=== PATIENT | male | born 1980 | race Two or more races ===

== ENCOUNTER 2018-09-06 16:10 | Emergency (ER) | payer SELFPAY ==
[2018-09-06] MEDS ORDERED: NORMAL SALINE 1000 ML 1,000 ML IV ONE (18:26)
[2018-09-06] MEDS ORDERED: ACETAMINOPHEN SOLN 325 MG/10.15 ML UDCUP PO ONE (18:26)
[2018-09-06] MEDS ORDERED: ACETAMINOPHEN 325 MG TABLET PO ONE (18:36)
--- NOTE | 2018-09-06 18:36 | ER Document Report ---
ED Medical Screen (RME) - General Chief Complaint: Abscess Stated Complaint: ABSCESS Time Seen by Provider: 09/06/18 18:16 Primary Care Provider: YARELY BRADY MD [Primary Care Provider] - Follow up as needed Mode of Arrival: Ambulatory TRAVEL OUTSIDE OF THE U.S. IN LAST 30 DAYS: No - HPI Notes: 09/06/18 18:27 Patient is a 37 yr old male who is with , speaks luxembourgish, but patient speaks belgian that presents to the emergency department for chief complaint of right facial swelling with fever today. Was by [facility] today and advised to come to the ER for swelling. was being evaluated for eye discharge within the last two weeks, was seen by an eye doctor was placed on eye antibiotics, denies any any eye pain today. has not tried any otc meds. worse with time, nothing makes better. ROS: Other than noted above, the 12 point review of systems was reviewed with the patient and were negative, all pertinent findings are included in the HPI. PHYSICAL EXAMINATION: Vital signs reviewed. GENERAL: Well-appearing, well-nourished and in no mild distress. HEAD: Atraumatic, normocephalic. right partoid gland with swelling with tend erness, no erythema. EYES: Pupils equal round extraocular movements intact, conjunctiva are normal. ENT: Nares patent NECK: Normal range of motion CV: Heart regular rate and rhythm LUNGS: No respiratory distress Musculoskeletal: Normal range of motion NEUROLOGICAL: Normal speech PSYCH: Normal mood, normal affect. MDM: Patient seen and examined for rapid initial assessment. Vital signs reviewed. A comprehensive ED assessment and evaluation of the patient, analysis of test results and completion of the medical decision making process will be conducted by additional ED providers. *Note is created using voice recognition software and may contain spelling, syntax or grammatical errors. 09/06/18 18:27 Past Medical History - Social History Chew tobacco use (# tins/day): No Frequency of alcohol use: Rare Drug Abuse: None Renal/ Medical History: Denies: Hx Peritoneal Dialysis Physical Exam - Vital signs Vitals: Temp Pulse Resp BP Pulse Ox 101.9 F H 91 22 H 160/90 H 96 09/06/18 16:23 09/06/18 16:23 09/06/18 16:23 09/06/18 16:23 09/06/18 16:23 Course - Vital Signs Vital signs: Temp Pulse Resp BP Pulse Ox 100.2 F 102 H 20 150/79 H 99 09/06/18 18:20 09/06/18 18:20 09/06/18 18:20 09/06/18 18:20 09/06/18 18:20 Doctor's Discharge - Discharge Referrals: YARELY BRADY MD [Primary Care Provider] - Follow up as needed
[2018-09-06 19:28] LABS: ABSOLUTE EOSINOPHILS # (AUTO) 0.4 10^3/uL (0.0-0.6); ABSOLUTE LYMPHOCYTES (AUTO) 1.9 10^3/uL (0.5-4.7); ABSOLUTE MONOCYTES (AUTO) 0.8 10^3/uL (0.1-1.4); ABSOLUTE NEUT (AUTO) 5.4 10^3/uL (1.7-8.2); BASOPHILS % (AUTO) 0.5 % (0-2); EOSINOPHILS % (AUTO) 4.7 % (0-6); HEMATOCRIT 41.9 % (37.9-51.0); HEMOGLOBIN 14.2 g/dL (13.5-17.0); LYMPHOCYTES % (AUTO) 22.5 % (13-45); MEAN CORPUSCULAR HEMOGLOBIN 28.7 pg (27.0-33.4); MEAN CORPUSCULAR HGB CONC 33.9 g/dL (32.0-36.0); MEAN CORPUSCULAR VOLUME 85 fl (80-97); PLATELET COUNT 284 10^3/uL (150-450); RED BLOOD COUNT 4.95 10^6/uL (4.35-5.55); SEGMENTED NEUTROPHILS % (AUTO) 63.3 % (42-78); TOTAL CELLS COUNTED % (AUTO) 100 %; WHITE BLOOD COUNT 8.6 10^3/uL (4.0-10.5)
[2018-09-06 19:47] LABS: ALANINE AMINOTRANSFERASE 25 U/L (21-72); ALBUMIN 4.5 g/dL (3.5-5.0); ALKALINE PHOSPHATASE 113 U/L (38-126); ANION GAP 12 (5-19); ASPARTATE AMINO TRANSFERASE 18 U/L (17-59); BILIRUBIN,DIRECT 0.2 mg/dL (0.0-0.4); BILIRUBIN,TOTAL 0.6 mg/dL (0.2-1.3); BLOOD UREA NITROGEN 9 mg/dL (7-20); C-REACTIVE PROTEIN 35.9 mg/L (<10.0); CALCIUM 9.5 mg/dL (8.4-10.2); CARBON DIOXIDE 26 mmol/L (22-30); CHLORIDE 101 mmol/L (98-107); GLUCOSE 100 mg/dL (75-110); SODIUM 138.6 mmol/L (137-145); TOTAL PROTEIN 7.7 g/dL (6.3-8.2)
[2018-09-06 20:05] LABS: CREATINE KINASE 54 U/L (55-170)
[2018-09-06 21:08] LABS: CREATINE KINASE MB < 0.22 ng/mL (<4.55); TROPONIN I < 0.012 ng/mL
--- NOTE | 2018-09-06 21:11 | RADIOLOGY REPORT (SQ) ---
EXAM DESCRIPTION: RadLex: CT NECK CHEST WITH IV CONTRAST CLINICAL HISTORY: 37 years Male; right parotid swelling, fever, pain TECHNIQUE: CT soft tissue neck with contrast. All CT scans at this facility use dose modulation, iterative reconstruction, and/or weight based dosing when appropriate to reduce radiation dose to as low as reasonably achievable. COMPARISON: None. FINDINGS: There are multiple enlarged right level 2 lymph nodes, with mild edema anterior to the right sternocleidomastoid, extending inferiorly from the inferior margin of the right parotid gland and posterior to the right submandibular gland. There is no discrete fluid collection. Jugulodigastric node is 2.3 cm. Other nodes measure up to 1.5 cm. A right parotid lymph node is 1.5 cm. There are several enlarged parotid lymph nodes. No norberto necrosis. There is minimal right parotid edema. No ductal distention. Right submandibular gland is normal. Left parotid and submandibular glands are normal. No enlarged left cervical lymph nodes. There are scattered small right level 3 and 4 nodes. Larynx is normal. Epiglottis is normal. No airway narrowing. No retropharyngeal edema. Paranasal sinuses and mastoid air cells are clear. IMPRESSION: 1. Right parotid and level 2 internal jugular adenopathy. Minimal right parotid edema, extending inferiorly along the anterior margin of the right sternocleidomastoid muscle. 2. This suggests parotiditis, although the size of lymph nodes raises concern for malignancy. Close follow-up is recommended. 3. No abscess.
[2018-09-06] MEDS ORDERED: SULFAMETHOXAZOLE/TRIMETHOPRIM 800-160 MG TABLET PO ONE (22:59)
[2018-09-06] MEDS ORDERED: CEPHALEXIN 500 MG CAPSULE PO ONE (23:00)
--- NOTE | 2018-09-06 23:02 | ER Document Report ---
ED General - General Chief Complaint: Abscess Stated Complaint: ABSCESS Time Seen by Provider: 09/06/18 18:16 Primary Care Provider: YARELY BRADY MD [NO LOCAL MD] - Follow up in 3-5 days DENIS GAMINO MD [ACTIVE STAFF] - Follow up in 3-5 days Mode of Arrival: Ambulatory Notes: Patient is a 37-year-old male that presents to the emergency department for chief complaint of facial swelling and pain. Patient apparently had a corneal abrasion about 2 weeks ago was treated for that, with antibiotics, was cleared from the tablet coater from that standpoint, but started having facial swelling and pain, on the right side over the past several days, and is gotten significantly worse. He said fever at home as well, currently describes the pain as a constant ache, worse with touching the right side of the face. The patient rates the pain as a 4 out of 10. He has had some drainage from his right eye as well. No pain with extraocular eye movements. Denies having any chest pain, shortness of breath, difficulty breathing, nausea, vomiting or abdominal pain. Past Medical History: Denies chronic medical conditions Past Surgical History: Denies surgical history Social History: Denies tobacco, alcohol or drug use. Family History: Reviewed and noncontributory for presenting illness Allergies: Reviewed, see documented allergy list. REVIEW OF SYSTEMS: Other than noted above, the 12 point review of systems was reviewed with the patient and were negative, all pertinent findings are included in the HPI. PHYSICAL EXAMINATION: Vital signs reviewed, nursing noted reviewed. GENERAL: Well-appearing, well-nourished and in no acute distress. HEAD: Atraumatic, normocephalic. EYES: EOMI, PERRLA, there is moderate conjunctival injection on the right, with yellowish discharge, the patient does not have pain with extraocular eye movement, the left eye is unremarkable. ENT: nares patent, oropharynx clear without exudates. Moist mucous membranes. The right side of the face is mildly edematous and mildly erythematous, tender to palpate particularly over the parotid gland. NECK: Normal range of motion, right-sided cervical lymphadenopathy. LUNGS: Breath sounds clear to auscultation bilaterally and equal. No wheezes rales or rhonchi. HEART: Regular rate and rhythm without murmurs ABDOMEN: Soft, nontender, normoactive bowel sounds. No rebound, guarding, or rigidity. No masses appreciated. EXTREMITIES: Nontender, good range of motion, no pitting or edema. NEUROLOGICAL: No focal neurological deficits. Moves all extremities spontaneously Motor and sensory grossly intact on exam. PSYCH: Normal mood, normal affect. SKIN: Warm, Dry, normal turgor, no rashes or lesions noted on exposed skin TRAVEL OUTSIDE OF THE [place].S. IN LAST 30 DAYS: No Past Medical History - Social History Smoking Status: Never Smoker Chew tobacco use (# tins/day): No Frequency of alcohol use: Rare Drug Abuse: None Family History: Reviewed & Not Pertinent Patient has suicidal ideation: No Patient has homicidal ideation: No Renal/ Medical History: Denies: Hx Peritoneal Dialysis Physical Exam - Vital signs Vitals: Temp Pulse Resp BP Pulse Ox 101.9 F H 91 22 H 160/90 H 96 09/06/18 16:23 09/06/18 16:23 09/06/18 16:23 09/06/18 16:23 09/06/18 16:23 Course - Re-evaluation Re-evalutation: Patient seen and examined vital signs reviewed. Laboratory data and/or imaging were ordered as appropriate for the patient's presenting symptoms and complaint, with consideration of any critical or life threatening conditions that may be associated with their obtained history and exam as noted above. Patient was treated with Bactrim, Keflex, IV fluids and Tylenol Results were reviewed when available and demonstrated no leukocytosis, blood work was essentially unremarkable, however CT imaging of the soft tissues of the face, revealed right-sided cervical lymph nodes, and inflammation of the parotid gland, and soft tissue swelling without discrete abscess, clinically the patient's presenting with facial cellulitis, does have tenderness over the right side of the face with erythema and some edema. The patient was re-evaluated and was stable Evaluation was most consistent with facial cellulitis, parotiditis, recommend follow-up with ENT, due to cervical lymph nodes associated with this, given referral. Given prescription for Bactrim and Keflex for 10 days. Results were discussed with the patient at this point, after careful consideration I feel that that patient can be discharged from the emergency department, the patient was educated treatments and reasons to return to the emergency department based on their presumed diagnosis as noted above, they were advised to followup with a primary care physician in 2-3 days. Patient was agreeable to plan of care. *Note is created using voice recognition software and may contain spelling, syntax or grammatical errors. Laboratory 09/06/18 09/06/18 09/06/18 19:08 19:08 19:08 WBC 8.6 RBC 4.95 Hgb 14.2 Hct 41.9 MCV 85 MCH 28.7 MCHC 33.9 RDW 15.0 H Plt Count 284 Seg Neutrophils % 63.3 Lymphocytes % 22.5 Monocytes % 9.0 Eosinophils % 4.7 Basophils % 0.5 Absolute Neutrophils 5.4 Absolute Lymphocytes 1.9 Absolute Monocytes 0.8 Absolute Eosinophils 0.4 Absolute Basophils 0.0 Sodium 138.6 Potassium 4.0 Chloride 101 Carbon Dioxide 26 Anion Gap 12 BUN 9 Creatinine 0.74 Est GFR ( Amer) > 60 Est GFR (Non-Af Amer) > 60 Glucose 100 Lactic Acid Calcium 9.5 Total Bilirubin 0.6 Direct Bilirubin 0.2 Neonat Total Bilirubin Not Reportable Neonat Direct Bilirubin Not Reportable Neonat Indirect Bili Not Reportable AST 18 ALT 25 Alkaline Phosphatase 113 Creatine Kinase 54 L CK-MB (CK-2) < 0.22 Troponin I < 0.012 C-Reactive Protein 35.9 H Total Protein 7.7 Albumin 4.5 09/06/18 21:30 WBC RBC Hgb Hct MCV MCH MCHC RDW Plt Count Seg Neutrophils % Lymphocytes % Monocytes % Eosinophils % Basophils % Absolute Neutrophils Absolute Lymphocytes Absolute Monocytes Absolute Eosinophils Absolute Basophils Sodium Potassium Chloride Carbon Dioxide Anion Gap BUN Creatinine Est GFR ( Amer) Est GFR (Non-Af Amer) Glucose Lactic Acid 0.6 L Calcium Total Bilirubin Direct Bilirubin Neonat Total Bilirubin Neonat Direct Bilirubin Neonat Indirect Bili AST ALT Alkaline Phosphatase Creatine Kinase CK-MB (CK-2) Troponin I C-Reactive Protein Total Protein Albumin Soft Tissue Neck CT 09/06/18 18:23 IMPRESSION: 1. Right parotid and level 2 internal jugular adenopathy. Minimal right parotid edema, extending inferiorly along the anterior margin of the right sternocleidomastoid muscle. 2. This suggests parotiditis, although the size of lymph nodes raises concern for malignancy. Close follow-up is recommended. 3. No abscess. - Vital Signs Vital signs: Temp Pulse Resp BP Pulse Ox 100.2 F 102 H 22 H 131/87 H 95 09/06/18 18:20 09/06/18 18:20 09/06/18 22:15 09/06/18 22:15 09/06/18 22:15 - Laboratory Result Diagrams: 09/06/18 19:08 09/06/18 19:08 Laboratory results interpreted by me: 09/06/18 09/06/18 09/06/18 19:08 19:08 21:30 RDW 15.0 H Lactic Acid 0.6 L Creatine Kinase 54 L C-Reactive Protein 35.9 H - EKG Interpretation by Me Additional EKG results interpreted by me: EKG demonstrates sinus rhythm with a ventricular rate of 70 bpm, normal axis, normal intervals, no evidence of acute ischemia in this EKG, no prior for comparison. Discharge - Discharge Clinical Impression: Parotiditis, Facial cellulitis Condition: Stable Disposition: HOME, SELF-CARE Instructions: Cellulitis ([facility]), Acute Parotid Gland Swelling ([facility]) Additional Instructions: Please follow-up with ear nose and throat physician, complete the entire course of antibiotics as directed, if your symptoms are worsening or not improving, please return to the emergency department immediately. Prescriptions: Cephalexin Monohydrate [Keflex 500 mg Capsule] 500 mg PO QID 10 Days #40 capsule Naproxen [Naprosyn] 500 mg PO BID PRN #30 tablet PRN Reason: FACIAL PAIN Sulfamethoxazole/Trimethoprim [Bactrim Ds Tablet] 1 each PO BID #20 tablet Referrals: YARELY BRADY MD [NO LOCAL MD] - Follow up in 3-5 days DENIS GAMINO MD [ACTIVE STAFF] - Follow up in 3-5 days Print Language: Tajik
[2018-09-06 23:49] VITALS: BP 124/78
--- NOTE | 2018-09-07 00:17 | EKG REPORT ---
SEVERITY:- ABNORMAL ECG - SINUS RHYTHM POSTERIOR INFARCT : Confirmed by: Rosio Mak 07-Sep-2018 00:17:16
== END 2018-09-06 23:49 | disposition home or self-care (01) ==
LOC: ER 16:10
DX: L03.211 Cellulitis of face (principal); K11.20 Sialoadenitis, unspecified; H57.89 Other specified disorders of eye and adnexa
CPT/HCPCS: 93005; 99284; 96360; 96361; 36415; 82553; 82550; 83605; 85025; 86140; 80053; 84484; 70491; 93010; J7030

== ENCOUNTER 2018-09-10 00:19 | Inpatient (IN) | payer SELFPAY ==
[2018-09-10] MEDS ORDERED: ONDANSETRON HCL INJ/PF 4 MG/2 ML SDV IV ONE (03:38)
[2018-09-10] MEDS ORDERED: MORPHINE SULFATE 10 MG/ML INJ IV ONE (03:38)
[2018-09-10] MEDS ORDERED: ACETAMINOPHEN 325 MG TABLET PO ONE (03:39)
[2018-09-10] MEDS ORDERED: NORMAL SALINE 1000 ML 1,000 ML IV ONE (03:41)
--- NOTE | 2018-09-10 03:43 | ER Document Report ---
ED General - General TRAVEL OUTSIDE OF THE U.[place]. IN LAST 30 DAYS: No <REED KAY - Last Filed: 09/10/18 08:40> <SESAR BA - Last Filed: 09/10/18 23:21> - General Chief Complaint: Fever Stated Complaint: RIGHT EYE PAIN Time Seen by Provider: 09/10/18 03:09 Notes: Patient is a 37-year-old male that comes to the emergency department for chief complaint of pain and redness to the right side of the face, pain and redness to the right eyelid with difficulty opening the eyelid, and fever. He was seen here 4 days ago, diagnosed with facial cellulitis and parotiditis, placed on Bactrim and Keflex along with naproxen, he states he has been taking all of these but he has worsened. He states redness has increased, pain has increased, fevers have been every day. He states he hurts "all over". He states he had a CAT scan last time and they told him it was his parotid and cellulitis. Patient also states that 2 weeks ago he was working outside and something was blown into his eye, he was told it was an abrasion and he was placed on an antibiotic eyedrop, he states he took this for 1 week, he states his symptoms improved but his symptoms never completely went away. He denies any diagnosed medical problems, daily medications, smoking, alcohol, or recreational drugs. Family at bedside, he requests that they interpret for him instead of an global recruiter, he is mainly Liberian-speaking. (REED KAY) - Related Data Allergies/Adverse Reactions: No Known Allergies Allergy (Unverified 09/10/18 07:06) Past Medical History - General Information source: Patient, Relative - Social History Smoking Status: Never Smoker Frequency of alcohol use: None Drug Abuse: None Lives with: Family Family History: Reviewed & Not Pertinent - Medical History Medical History: Negative Renal/ Medical History: Denies: Hx Peritoneal Dialysis Surgical Hx: Negative - Immunizations Immunizations up to date: Yes Hx Diphtheria, Pertussis, Tetanus Vaccination: Yes <REED KAY - Last Filed: 09/10/18 08:40> Review of Systems - Review of Systems Constitutional: See HPI EENT: See HPI Cardiovascular: No symptoms reported Respiratory: No symptoms reported Gastrointestinal: No symptoms reported Genitourinary: No symptoms reported Male Genitourinary: No symptoms reported Musculoskeletal: No symptoms reported Skin: See HPI Hematologic/Lymphatic: No symptoms reported Neurological/Psychological: No symptoms reported <MIKELSOPHIA ALLISONAN - Last Filed: 09/10/18 08:40> Physical Exam <REED KAY - Last Filed: 09/10/18 08:40> - Vital signs Vitals: Temp Pulse Resp BP Pulse Ox 100.0 F 112 H 20 135/73 H 96 09/10/18 01:07 09/10/18 01:07 09/10/18 01:07 09/10/18 01:07 09/10/18 01:07 - Notes Notes: GENERAL: Quiet, sitting his eyes closed, appears uncomfortable. HEAD: Normocephalic, atraumatic. EYES: Pupils equal, round, and reactive to light. Patient appears to have pain with trying to perform extraocular movements. There is no erythema, tenderness, and warmth to the eyelids, mainly of the upper eyelid. Sclerae very injected and somewhat swollen/edematous in appearance. Cornea appears normal, pupil appears normal, no concerning findings noted on fluorescein dye. No foreign body, negative Silva sign. No hyphema. ENT: Oral mucosa moist, tongue midline. Oropharynx unremarkable. Airway patent. Nares patent, no nasal septal hematoma, TM's intact. There is some swelling to the right side of the face with tenderness but no overt erythema or abnormal heat. NECK: Full range of motion. Supple. Trachea midline. LUNGS: Clear to auscultation bilaterally, no wheezes, rales, or rhonchi. No respiratory distress. HEART: Regular rate and rhythm. No murmur ABDOMEN: Soft, non-tender. Non-distended. Bowel sounds present in all 4 quadrants. GENITOURINARY: Deferred EXTREMITIES: Moves all 4 extremities spontaneously. No edema, normal radial and dorsalis pedis pulses bilaterally. No cyanosis. BACK: no cervical, thoracic, lumbar midline tenderness. No saddle anesthesia, normal distal neurovascular exam. Moves all extremities in full range of motion. NEUROLOGICAL: Alert and oriented x3. Normal speech. Cranial nerves II through XII grossly intact. PSYCH: Flat affect, somewhat quiet, still cooperative SKIN: Flushed, warm, no rashes or lesions noted. (REED AKY) Course - Laboratory Result Diagrams: 09/10/18 04:01 09/10/18 04:01 <REED KAY - Last Filed: 09/10/18 08:40> - Laboratory Result Diagrams: 09/10/18 04:01 09/10/18 04:01 <SESAR BA - Last Filed: 09/10/18 23:21> - Re-evaluation Re-evalutation: 09/10/18 Patient does have a fever, appears very uncomfortable. Mild leukocytosis with elevation of neutrophils but no bandemia. Lactic acid is not elevated. Patient is minimally more comfortable after treatment with pain medication. I asked Dr. Ba to evaluate the patient. Patient does have erythema of the eyelid, swelling over the right side of the face although there is not significant heat or erythema to the side of the face. He does have tenderness over this area. He does have pain with range of motion of the eye. The sclera appears very injected and erythematous with some swelling. The examination with fluorescein dye is unremarkable. Concerned because of patient's ongoing fevers and worsening symptoms despite outpatient antibiotics. We do not have ENT or ophthalmology transportation job titles this weekend. I discussed the patient, he requests I speak with [place] first. 09/10/18 07:[address] Moore, ophthalmology on-call at [facility]. I discussed history, details, physical exam, concerns. Her recommendation is ENT discussion because the CAT scan does not indicate orbital cellulitis and therefore she does not feel the fever and probably even the EOM pain is secondary to this. She feels that more concerning problem is the parotitis with fevers despite home tr eatment. Pending ENT consult. 09/10/18 08:[address] Tsang. He states he did review the images, there appears to be parotitis with reactive lymph nodes within the parotid areas, ap pears most likely infectious. He states that because of his fevers, failure of outpatient management, he does recommend patient be admitted to the hospital for IV antibiotics, however he does not see any drainable abscess or any need for ENT intervention at this time. He does recommend admission to hospital service. Discussed with Dr. Ba. Will discuss with hospitalist. 09/10/18 08:35 Discussed with Esther Rodriguez NP, she states patient is to be admitted to the medical floor under Dr. Arguello. Patient and significant other state agreement with this plan. (REED KAY) 09/10/18 23:20 To evaluate the patient as well with Reed Kay. Patient does have swelling to the right side of face consistent with appears to be probably a proctitis. The concern is that he has a lot of pain with any movement of his right eye and he does have a little bit of ecchymosis of his right eye. Therefore informed to go forward with a CT scan to rule oral cellulitis. CT scan shows no evidence of orbital cellulitis but continues to show the parotid inflammation. Reed therefore spoke with both ophthalmology and ENT. Recommend admission for IV antibiotics. Dictation of this chart was performed using voice recognition software; therefore, there may be some unintended grammatical errors. (SESAR BA) - Vital Signs Vital signs: Temp Pulse Resp BP Pulse Ox 101.7 F H 106 H 18 129/72 H 97 09/10/18 22:33 09/10/18 22:33 09/10/18 19:52 09/10/18 19:52 09/10/18 22:33 - Laboratory Laboratory results interpreted by me: 09/10/18 09/10/18 04:01 04:01 WBC 13.0 H RDW 14.6 H Lymphocytes % (Manual) 12 L Abs Neuts (Manual) 9.4 H Abs Monocytes (Manual) 1.7 H Sodium 136.6 L Glucose 129 H Alkaline Phosphatase 168 H Discharge - Discharge Admitting Provider: Jos (Hospitalist) Unit Admitted: Medical Floor <REED KAY - Last Filed: 09/10/18 08:40> <SESAR BA - Last Filed: 09/10/18 23:21> - Discharge Clinical Impression: Parotitis, Facial swelling, Pain, eye, right Fever Qualifiers: Fever type: unspecified Qualified Code(s): R50.9 - Fever, unspecified Condition: Stable Disposition: ADMITTED INPATIENT
[2018-09-10 04:19] LABS: HEMOGLOBIN 13.8 g/dL (13.5-17.0); MEAN CORPUSCULAR HEMOGLOBIN 28.6 pg (27.0-33.4); MEAN CORPUSCULAR HGB CONC 33.8 g/dL (32.0-36.0); MEAN CORPUSCULAR VOLUME 85 fl (80-97); PLATELET COUNT 264 10^3/uL (150-450); RED BLOOD COUNT 4.84 10^6/uL (4.35-5.55); RED CELL DISTRIBUTION WIDTH 14.6 % (11.5-14.0)
[2018-09-10 04:35] LABS: ALANINE AMINOTRANSFERASE 40 U/L (21-72); ALKALINE PHOSPHATASE 168 U/L (38-126); ANION GAP 10 (5-19); ASPARTATE AMINO TRANSFERASE 41 U/L (17-59); BILIRUBIN,DIRECT 0.3 mg/dL (0.0-0.4); BILIRUBIN,TOTAL 0.7 mg/dL (0.2-1.3); BLOOD UREA NITROGEN 18 mg/dL (7-20); CALCIUM 8.9 mg/dL (8.4-10.2); CARBON DIOXIDE 24 mmol/L (22-30); CHLORIDE 103 mmol/L (98-107); GLUCOSE 129 mg/dL (75-110); POTASSIUM 4.3 mmol/L (3.6-5.0); SODIUM 136.6 mmol/L (137-145); TOTAL PROTEIN 7.7 g/dL (6.3-8.2)
[2018-09-10 04:49] LABS: ABSOLUTE LYMPHOCYTES# (MANUAL) 1.8 10^3/uL (0.5-4.7); ABSOLUTE MONOCYTES # (MANUAL) 1.7 10^3/uL (0.1-1.4); BASOPHILS % (MANUAL) 0 % (0-2); EOSINOPHILS % (MANUAL) 1 % (0-6); LYMPHOCYTES % (MANUAL) 12 % (13-45); MONOCYTES % (MANUAL) 13 % (3-13); SEGMENTED NEUTROPHILS % (MAN) 72 % (42-78); TOTAL CELLS COUNTED 100
[2018-09-10 04:51] LABS: ANISOCYTOSIS SLIGHT; POIKILOCYTOSIS 1+; TOXIC GRANULATION SLIGHT; TOXIC VACUOLATION PRESENT
[2018-09-10 04:52] LABS: HELMET CELLS SLIGHT; OVALOCYTES SLIGHT; PLATELET COMMENT ADEQUATE; TEAR DROP CELLS SLIGHT
[2018-09-10] MEDS ORDERED: TETRACAINE HCL 0.5% OPH SOLN 4 ML OD ONE (05:09)
[2018-09-10] MEDS ORDERED: TETRACAINE HCL 0.5% OPH SOLN 4 ML ONE (05:09)
[2018-09-10] MEDS ORDERED: AMPICILLIN SOD/SULBACTAM 3 GM VIAL IV ONE (05:26)
--- NOTE | 2018-09-10 06:37 | RADIOLOGY REPORT (SQ) ---
EXAM DESCRIPTION: CT MAXILLOFACIAL WITH IV CONTRAST COMPLETED DATE/TME: 09/10/2018 05:22 CLINICAL HISTORY: 37 years Male, Possible orbital cellulitis Comparison: 09/06/18 Technique: No contrast. Coronal and sagittal reformat. This exam was performed according to our departmental dose-optimization program, which includes automated exposure control, adjustment of the mA and/or kV according to patient size and/or use of iterative reconstruction technique.[facility]: Dose Right [facility]: CareDose [facility]: Dose Right [facility]: Teradose 4D [facility]: Gaelectric LIMITATIONS: None Findings: Increased multiple nodular lesions of the right parotid gland measuring up to 1.8, 1.7, and 1.7 cm. Moderate asymmetric enlargement of the right parotid space. Orbits appear intact. No CT evidence of abscess, or drainable fluid collection, as queried. Moderate right submandibular lymphadenopathy includes a 2.0 x 1.0 cm lymph node, image 14 of series 4. Facial bones including orbits, nasal bone, paranasal sinuses, and pterygoid plates appear otherwise intact. Unremarkable partially visualized inferior cranium, temporal bone, and upper neck. IMPRESSION: Numerous right parotid lesions measure up to 1.8 cm, 1.7 cm, and 1.7 cm. Moderate right submandibular lymphadenopathy. Interval worsening. Differential etiologies include infectious, inflammatory, and neoplastic processes.
[2018-09-10] MEDS ORDERED: HYDROMORPHONE HCL INJ/PF 2 MG/ML AMPULE IV ONE (07:25)
--- NOTE | 2018-09-10 07:46 | RADIOLOGY REPORT (SQ) ---
EXAM DESCRIPTION: XR CHEST 1 VIEW COMPLETED DATE/TME: 09/10/2018 06:49 CLINICAL HISTORY: 37 years, Male, fever COMPARISON: None. NUMBER OF VIEWS: One TECHNIQUE: AP view of the chest LIMITATIONS: None. FINDINGS: The lungs are clear. The heart is normal in size. There is no thorax or pleural effusion. There is no acute fracture. IMPRESSION: No acute cardiopulmonary abnormality. copyright 2010 [employer]- All Rights Reserved
[2018-09-10] MEDS ORDERED: IPRATROPIUM/ALBUTEROL 0.5-2.5 MG/3 ML AMPUL NEB PRN (08:58)
[2018-09-10] MEDS ORDERED: MAGNESIUM HYDROXIDE SUSP 30 ML UDCUP PO PRN (08:58)
[2018-09-10] MEDS ORDERED: ONDANSETRON HCL INJ/PF 4 MG/2 ML SDV IV PRN (08:58)
[2018-09-10] MEDS ORDERED: ACETAMINOPHEN 325 MG TABLET PO PRN (08:58)
[2018-09-10] MEDS ORDERED: PROMETHAZINE HCL INJ 25 MG/1 ML VIAL IV PRN (08:58)
[2018-09-10] MEDS ORDERED: MAG HYDROX/AL HYDROX/SIMETH SUSP 30 ML UDCUP PO PRN (08:58)
[2018-09-10] MEDS: DOCUSATE SODIUM 100 MG CAPSULE PO SCH (10:40)
[2018-09-10] MEDS: FAMOTIDINE 20 MG TABLET PO SCH ×2 (10:40→21:24)
[2018-09-10] MEDS: NORMAL SALINE 1000 ML 1,000 ML IV PRN ×2 (10:41→19:54)
[2018-09-10] MEDS: AMPICILLIN SODIUM/SULBACTAM NA 3 GM in NORMAL SALINE 100 ML IV SCH ×3 (12:18→23:24)
[2018-09-10] MEDS: OXYCODONE-ACETAMINOPHEN 5-325 MG TABLET PO PRN ×2 (12:50→17:03)
[2018-09-10] MEDS: HEPARIN SOD (PORCINE) 5,000 UNIT/ML 1 ML SYRINGE SUBCUT SCH ×2 (15:28→21:24)
[2018-09-10] MEDS: ERYTHROMYCIN 0.5% OPH OINTMENT 3.5 GM TUBE OD SCH ×2 (17:02→23:25)
[2018-09-10] MEDS: OXYCODONE-ACETAMINOPHEN 5-325 MG TABLET PO ONE (17:03)
--- NOTE | 2018-09-10 18:52 | PDOC H&P ---
History of Present Illness Admission Date/PCP: 09/10/18 09:21 Patient complains of: facial pain History of Present Illness: MABEL MORFIN is a 37 year old male without significant past medical history who presented to the emergency department today with a complaint of right-sided facial edema, erythema, and pain now with fever. Patient was seen in the emergency department 4 days ago and diagnosed with facial cellulitis; discharged home on p.o. Bactrim and Keflex. Valuation in the emergency department today reveals temp of 100, tachycardia, tachypnea, leukocytosis, and facial CT demonstrating numerous right parotid lesions with moderate right submandibular lymphadenopathy with interval worsening. Emergency department provider spoke with surgery specialist and ENT at [facility]; no need for ophthalmology or ENT interventions at this time and have recommended hospital admission with IV antibiotics. Therefore patient is referred to the hospitalist service for admission and management of the above- stated complaints and findings. Past Medical History Medical History: None Past Surgical History Past Surgical History: Reports: None Social History Information Source: Patient Lives with: Family Smoking Status: Never Smoker Frequency of Alcohol Use: Occasional Hx Recreational Drug Use: No Drugs: None Hx Prescription Drug Abuse: No - Advance Directive Resuscitation Status: Full Code Family History Family History: Reviewed & Not Pertinent Parental Family History Reviewed: Yes Children Family History Reviewed: Yes Sibling(s) Family History Reviewed.: Yes Medication/Allergy Home Medications: No Home Medications 09/10/18 Allergies/Adverse Reactions: No Known Allergies Allergy (Unverified 09/10/18 07:06) Review of Systems Constitutional: PRESENT: fever(s), headache(s). ABSENT: chills, weight gain, weight loss Eyes: ABSENT: visual disturbances Ears: ABSENT: hearing changes Cardiovascular: ABSENT: chest pain, dyspnea on exertion, edema, orthropnea, palpitations Respiratory: ABSENT: cough, hemoptysis Gastrointestinal: ABSENT: abdominal pain, constipation, diarrhea, hematemesis, hematochezia, nausea, vomiting Genitourinary: ABSENT: dysuria, hematuria Musculoskeletal: ABSENT: joint swelling Integumentary: PRESENT: erythema. ABSENT: rash, wounds Neurological: ABSENT: abnormal gait, abnormal speech, confusion, dizziness, focal weakness, syncope Psychiatric: ABSENT: anxiety, depression, homidical ideation, suicidal ideation Endocrine: ABSENT: cold intolerance, heat intolerance, polydipsia, polyuria Hematologic/Lymphatic: ABSENT: easy bleeding, easy bruising Physical Exam Vital Signs: Temp Pulse Resp BP Pulse Ox 98.2 F 98 18 128/61 H 95 09/10/18 14:10 09/10/18 16:54 09/10/18 16:54 09/10/18 14:10 09/10/18 16:54 Intake & Output 09/09/18 09/10/18 09/11/18 06:59 06:59 06:59 Intake Total 1000 100 Balance 1000 100 Weight 94.2 kg General appearance: PRESENT: no acute distress, cooperative, well-developed, well-nourished Head exam: PRESENT: atraumatic, normocephalic, other - Rt sided edema and tenderness w/ palpation Eye exam: PRESENT: conjunctival injection - Rt eye w/ purulent drainage, EOMI, periorbital swelling - Rt eye, PERRLA. ABSENT: scleral icterus Ear exam: PRESENT: normal external ear exam Mouth exam: PRESENT: moist, tongue midline Neck exam: ABSENT: carotid bruit, JVD, lymphadenopathy, thyromegaly Respiratory exam: PRESENT: clear to auscultation yani, symmetrical, unlabored. ABSENT: rales, rhonchi, wheezes Cardiovascular exam: PRESENT: RRR, +S1, +S2. ABSENT: diastolic murmur, rubs, systolic murmur Pulses: PRESENT: normal dorsalis pedis pul Vascular exam: PRESENT: normal capillary refill GI/Abdominal exam: PRESENT: normal bowel sounds, soft. ABSENT: distended, guarding, mass, organolmegaly, rebound, tenderness Rectal exam: PRESENT: deferred Extremities exam: PRESENT: full ROM. ABSENT: calf tenderness, clubbing, pedal edema Neurological exam: PRESENT: alert, awake, oriented to person, oriented to place, oriented to time, oriented to situation, CN II-XII grossly intact. ABSENT: motor sensory deficit Psychiatric exam: PRESENT: appropriate affect, normal mood. ABSENT: homicidal ideation, suicidal ideation Skin exam: PRESENT: dry, intact, warm. ABSENT: cyanosis, rash Results Laboratory Results: 09/10/18 04:01 09/10/18 04:01 09/10/18 09/10/18 09/10/18 04:01 04:01 04:01 WBC 13.0 H RBC 4.84 Hgb 13.8 Hct 41.0 MCV 85 MCH 28.6 MCHC 33.8 RDW 14.6 H Plt Count 264 Seg Neutrophils % Not Reportable Lymphocytes % Not Reportable Monocytes % Not Reportable Eosinophils % Not Reportable Basophils % Not Reportable Absolute Neutrophils Not Reportable Absolute Lymphocytes Not Reportable Absolute Monocytes Not Reportable Absolute Eosinophils Not Reportable Absolute Basophils Not Reportable Sodium 136.6 L Potassium 4.3 Chloride 103 Carbon Dioxide 24 Anion Gap 10 BUN 18 Creatinine 1.10 Est GFR ( Amer) > 60 Est GFR (Non-Af Amer) > 60 Glucose 129 H Lactic Acid 1.1 Calcium 8.9 Total Bilirubin 0.7 AST 41 ALT 40 Alkaline Phosphatase 168 H Total Protein 7.7 Albumin 4.0 Impressions: Facial Bones CT 09/10/18 05:22 IMPRESSION: Numerous right parotid lesions measure up to 1.8 cm, 1.7 cm, and 1.7 cm. Moderate right submandibular lymphadenopathy. Interval worsening. Differential etiologies include infectious, inflammatory, and neoplastic processes. Chest X-Ray 09/10/18 06:49 IMPRESSION: No acute cardiopulmonary abnormality. copyright 2011 [facility]- All Rights Reserved Assessment and Plan - Diagnosis (1) Parotiditis Is this a current diagnosis for this admission?: Yes Plan: Facial CT demonstrates numerous right parotid lesions with moderate right submandibular lymphadenopathy. Patient has failed outpatient Bactrim and Keflex therapy. ED provider spoke with ophthalmology and ENT at [facility]; recommends admission for IV abx. Lab Blood cultures are pending. Patient is admitted to the medical floor. He is placed on IV Unasyn; will adjust as cultures result. Tylenol and oxycodone as needed (2) Facial cellulitis Is this a current diagnosis for this admission?: Yes Plan: Secondary to #1. Cultures and antibiotics as above. (3) Leukocytosis Is this a current diagnosis for this admission?: Yes Plan: Secondary to #1. Patient with increased neutrophils but no bandemia. Cultures and antibiotics as above. (4) Fever Qualifiers: Fever type: unspecified Qualified Code(s): R50.9 - Fever, unspecified Is this a current diagnosis for this admission?: Yes Plan: Secondary to #1. Supportive care. Tylenol as needed. (5) Pain, eye, right Is this a current diagnosis for this admission?: Yes Plan: Per ED providers note, Dr. Sloop (marketing production coordinator ophthalmology at [facility]) pain is likely secondary to parotiditis. Antibiotics as above. Patient does have conjunctival injection and purulent drainage; will also provide erythromycin ointment. - Time Time Spent with patient: 35 or more minutes Medications reviewed and adjusted accordingly: Yes Anticipated discharge: Home - Inpatient Certification Based on my medical assessment, after consideration of the patient's comorbidities, presenting symptoms, or acuity I expect that the services needed warrant INPATIENT care.: Yes I certify that my determination is in accordance with my understanding of Medicare's requirements for reasonable and necessary INPATIENT services [42 CFR 412.3e].: Yes Medical Necessity: Need for IV Antibiotics
[2018-09-11] MEDS ORDERED: KETOROLAC TROMETHAMINE INJ/PF 30 MG/1 ML SDV IV PRN (00:12)
[2018-09-11] MEDS ORDERED: VANCOMYCIN HCL 1,500 MG in DEXTROSE 5%-WATER 250 ML IV ONE (00:15)
[2018-09-11] MEDS ORDERED: VANCOMYCIN HCL 0 MG in DEXTROSE 5%-WATER 250 ML IV NR (00:15)
[2018-09-11] MEDS ORDERED: VANCOMYCIN HCL INJ 1000 MG VIAL IV PRN (00:23)
[2018-09-11] MEDS ORDERED: VANCOMYCIN HCL INJ 1000 MG VIAL ONE (01:44)
[2018-09-11] MEDS: AMPICILLIN SODIUM/SULBACTAM NA 3 GM in NORMAL SALINE 100 ML IV SCH ×4 (05:28→23:19)
[2018-09-11] MEDS: ERYTHROMYCIN 0.5% OPH OINTMENT 3.5 GM TUBE OD SCH ×4 (05:29→23:20)
[2018-09-11] MEDS: HEPARIN SOD (PORCINE) 5,000 UNIT/ML 1 ML SYRINGE SUBCUT SCH ×3 (05:29→21:50)
[2018-09-11] MEDS: NORMAL SALINE 1000 ML 1,000 ML IV PRN ×2 (05:37→16:49)
[2018-09-11 06:18] LABS: ABSOLUTE EOSINOPHILS # (AUTO) 0.3 10^3/uL (0.0-0.6); ABSOLUTE LYMPHOCYTES (AUTO) 1.7 10^3/uL (0.5-4.7); ABSOLUTE MONOCYTES (AUTO) 1.3 10^3/uL (0.1-1.4); ABSOLUTE NEUT (AUTO) 5.3 10^3/uL (1.7-8.2); BASOPHILS % (AUTO) 0.6 % (0-2); EOSINOPHILS % (AUTO) 3.3 % (0-6); HEMATOCRIT 34.4 % (37.9-51.0); MEAN CORPUSCULAR HEMOGLOBIN 28.2 pg (27.0-33.4); MEAN CORPUSCULAR HGB CONC 33.5 g/dL (32.0-36.0); MEAN CORPUSCULAR VOLUME 84 fl (80-97); MONOCYTES % (AUTO) 14.7 % (3-13); PLATELET COUNT 227 10^3/uL (150-450); RED BLOOD COUNT 4.08 10^6/uL (4.35-5.55); RED CELL DISTRIBUTION WIDTH 14.4 % (11.5-14.0); SEGMENTED NEUTROPHILS % (AUTO) 61.4 % (42-78); TOTAL CELLS COUNTED % (AUTO) 100 %; WHITE BLOOD COUNT 8.6 10^3/uL (4.0-10.5)
[2018-09-11 06:25] LABS: HEMOGLOBIN 11.5 g/dL (13.5-17.0)
[2018-09-11 06:39] LABS: ANION GAP 8 (5-19); BLOOD UREA NITROGEN 11 mg/dL (7-20); CALCIUM 8.2 mg/dL (8.4-10.2); CARBON DIOXIDE 25 mmol/L (22-30); CHLORIDE 103 mmol/L (98-107); GLUCOSE 103 mg/dL (75-110); POTASSIUM 4.2 mmol/L (3.6-5.0); SODIUM 136.2 mmol/L (137-145)
[2018-09-11] MEDS: OXYCODONE-ACETAMINOPHEN 5-325 MG TABLET PO PRN (07:23)
[2018-09-11] MEDS: DOCUSATE SODIUM 100 MG CAPSULE PO SCH (09:26)
[2018-09-11] MEDS: FAMOTIDINE 20 MG TABLET PO SCH ×2 (09:26→21:49)
--- NOTE | 2018-09-11 12:22 | Progress Note Acknowledgement ---
Progress Note Acknowledgement Progess Note Acknowledgement: I, the undersigned member of the medical staff with appropriate privileges and with supervisory authority over Esther Rodriguez, a [facility] practice allied health professional, acknowledge that I have reviewed the progress notes entered on this patient, and in my professional judgment believe that the assessment made and/or any care evidenced was appropriate
--- NOTE | 2018-09-11 12:27 | PDOC PROGRESS REPORT ---
Subjective Progress Note for:: 09/11/18 Subjective:: MABEL MORFIN is a 37 year old male without significant past medical history who presented to the emergency department today with a complaint of right-sided facial edema, erythema, and pain now with fever. Patient was seen in the emergency department 4 days ago and diagnosed with facial cellulitis; discharged home on p.o. Bactrim and Keflex. Admitted for parotiditis and facial cellulitis. Patient is seen on morning rounds. He is found sitting up to the edge of the bed comfortably on room air. He reports fever overnight but overall improved pain. The edema to his face and bucca mucosa has decreased; patient is now able to speak clearly and swallow without discomfort. He reports that the oxycodone was too strong and did not like the way it made him feel; requests to trial a different pain medication. Otherwise he denies fever, chills, chest pain, palpitations, dyspnea, orthopnea, abdominal pain, nausea vomiting and diarrhea. He reports good appetite. No other questions or concerns. No concerns per nursing. Reason For Visit: PAROTITIS,FACIAL CELLULITIS Physical Exam Vital Signs: Temp Pulse Resp BP Pulse Ox 98.1 F 86 16 128/67 H 98 09/11/18 11:42 09/11/18 11:42 09/11/18 11:42 09/11/18 11:42 09/11/18 11:42 Intake & Output 09/10/18 09/11/18 09/12/18 06:59 06:59 06:59 Intake Total 1000 2400 Balance 1000 2400 Weight 94.2 kg 100.3 kg General appearance: PRESENT: no acute distress, cooperative, well-developed, well-nourished Head exam: PRESENT: atraumatic, normocephalic, other - Rt sided edema and tenderness w/ palpation; improved Eye exam: PRESENT: conjunctiva pink, EOMI, PERRLA. ABSENT: scleral icterus Ear exam: PRESENT: normal external ear exam Mouth exam: PRESENT: moist, tongue midline Neck exam: ABSENT: carotid bruit, JVD, lymphadenopathy, thyromegaly Respiratory exam: PRESENT: clear to auscultation yani, symmetrical, unlabored. ABSENT: rales, rhonchi, wheezes Cardiovascular exam: PRESENT: RRR, +S1, +S2. ABSENT: diastolic murmur, rubs, systolic murmur Pulses: PRESENT: normal dorsalis pedis pul Vascular exam: PRESENT: normal capillary refill GI/Abdominal exam: PRESENT: normal bowel sounds, soft. ABSENT: distended, guarding, mass, organolmegaly, rebound, tenderness Rectal exam: PRESENT: deferred Extremities exam: PRESENT: full ROM. ABSENT: calf tenderness, clubbing, pedal edema Musculoskeletal exam: PRESENT: ambulatory Neurological exam: PRESENT: alert, awake, oriented to person, oriented to place, oriented to time, oriented to situation, CN II-XII grossly intact. ABSENT: motor sensory deficit Psychiatric exam: PRESENT: appropriate affect, normal mood. ABSENT: homicidal ideation, suicidal ideation Skin exam: PRESENT: dry, intact, warm. ABSENT: cyanosis, rash Results Laboratory Results: 09/11/18 06:00 09/11/18 06:00 09/11/18 09/11/18 06:00 06:00 WBC 8.6 RBC 4.08 L Hgb 11.5 L D Hct 34.4 L MCV 84 MCH 28.2 MCHC 33.5 RDW 14.4 H Plt Count 227 Seg Neutrophils % 61.4 Lymphocytes % 20.0 Monocytes % 14.7 H Eosinophils % 3.3 Basophils % 0.6 Absolute Neutrophils 5.3 Absolute Lymphocytes 1.7 Absolute Monocytes 1.3 Absolute Eosinophils 0.3 Absolute Basophils 0.0 Sodium 136.2 L Potassium 4.2 Chloride 103 Carbon Dioxide 25 Anion Gap 8 BUN 11 Creatinine 0.81 Est GFR ( Amer) > 60 Est GFR (Non-Af Amer) > 60 Glucose 103 Calcium 8.2 L Impressions: Facial Bones CT 09/10/18 05:22 IMPRESSION: Numerous right parotid lesions measure up to 1.8 cm, 1.7 cm, and 1.7 cm. Moderate right submandibular lymphadenopathy. Interval worsening. Differential etiologies include infectious, inflammatory, and neoplastic processes. Chest X-Ray 09/10/18 06:49 IMPRESSION: No acute cardiopulmonary abnormality. copyright 2010 [employer]- All Rights Reserved Assessment and Plan - Diagnosis (1) Parotiditis Is this a current diagnosis for this admission?: Yes Plan: Facial CT demonstrates numerous right parotid lesions with moderate right submandibular lymphadenopathy. Patient has failed outpatient Bactrim and Keflex therapy. ED provider spoke with ophthalmology and ENT at [facility]; recommends admission for IV abx. Lab Blood cultures have no growth at 24 hr Patient is admitted to the medical floor. He is placed on IV Unasyn; will adjust as cultures result. Tylenol and oxycodone as needed (2) Facial cellulitis Is this a current diagnosis for this admission?: Yes Plan: Secondary to #1. Cultures and antibiotics as above. (3) Leukocytosis Is this a current diagnosis for this admission?: Yes Plan: Resolved. Secondary to #1. Cultures and antibiotics as above. (4) Fever Qualifiers: Fever type: unspecified Qualified Code(s): R50.9 - Fever, unspecified Is this a current diagnosis for this admission?: Yes Plan: Secondary to #1. TMac 102.9 overnight Will ask nurses to obtain stat blood cultures for next temp >101 Supportive care. Tylenol as needed. (5) Pain, eye, right Is this a current diagnosis for this admission?: Yes Plan: Improved; erythema and drainage has resolved. Per ED providers note, Dr. Moore (consulting hr professional ophthalmology at [facility]) pain is likely secondary to parotiditis. Antibiotics as above. Continue erythromycin ointment. - Time Time Spent with patient: 15-24 minutes Medications reviewed and adjusted accordingly: Yes Anticipated discharge: Home
[2018-09-11] MEDS: HYDROCODONE/ACETAMINOPHEN 5-325 MG TABLET PO PRN (16:49)
[2018-09-11] MEDS: OXYCODONE-ACETAMINOPHEN 5-325 MG TABLET PO ONE (17:03)
[2018-09-12] MEDS: NORMAL SALINE 1000 ML 1,000 ML IV PRN ×3 (02:49→21:48)
[2018-09-12] MEDS: AMPICILLIN SODIUM/SULBACTAM NA 3 GM in NORMAL SALINE 100 ML IV SCH ×4 (05:26→23:38)
[2018-09-12] MEDS: HEPARIN SOD (PORCINE) 5,000 UNIT/ML 1 ML SYRINGE SUBCUT SCH ×3 (05:27→21:49)
[2018-09-12] MEDS: ERYTHROMYCIN 0.5% OPH OINTMENT 3.5 GM TUBE OD SCH ×4 (05:28→23:40)
[2018-09-12 06:20] LABS: ABSOLUTE EOSINOPHILS # (AUTO) 0.4 10^3/uL (0.0-0.6); ABSOLUTE LYMPHOCYTES (AUTO) 1.9 10^3/uL (0.5-4.7); ABSOLUTE MONOCYTES (AUTO) 1.1 10^3/uL (0.1-1.4); ABSOLUTE NEUT (AUTO) 3.9 10^3/uL (1.7-8.2); BASOPHILS % (AUTO) 0.5 % (0-2); HEMATOCRIT 34.8 % (37.9-51.0); HEMOGLOBIN 11.7 g/dL (13.5-17.0); LYMPHOCYTES % (AUTO) 25.1 % (13-45); MEAN CORPUSCULAR HEMOGLOBIN 28.5 pg (27.0-33.4); MEAN CORPUSCULAR HGB CONC 33.5 g/dL (32.0-36.0); MEAN CORPUSCULAR VOLUME 85 fl (80-97); MONOCYTES % (AUTO) 15.1 % (3-13); PLATELET COUNT 265 10^3/uL (150-450); RED BLOOD COUNT 4.09 10^6/uL (4.35-5.55); RED CELL DISTRIBUTION WIDTH 14.8 % (11.5-14.0); SEGMENTED NEUTROPHILS % (AUTO) 53.3 % (42-78); TOTAL CELLS COUNTED % (AUTO) 100 %; WHITE BLOOD COUNT 7.4 10^3/uL (4.0-10.5)
[2018-09-12] MEDS: HYDROCODONE/ACETAMINOPHEN 5-325 MG TABLET PO PRN ×2 (07:43→23:46)
[2018-09-12] MEDS: DOCUSATE SODIUM 100 MG CAPSULE PO SCH (09:20)
[2018-09-12] MEDS: FAMOTIDINE 20 MG TABLET PO SCH ×2 (09:20→21:48)
--- NOTE | 2018-09-12 13:49 | PDOC PROGRESS REPORT ---
Subjective Progress Note for:: 09/12/18 Subjective:: MABEL MORFIN is a 37 year old male without significant past medical history who presented to the emergency department today with a complaint of right-sided facial edema, erythema, and pain now with fever. Patient was seen in the emergency department 4 days ago and diagnosed with facial cellulitis; discharged home on p.o. Bactrim and Keflex. Admitted for parotiditis and facial cellulitis. Patient is seen on morning rounds with family members present. He is initially found sleeping, breathing easily on room air, does wake easily when I say his name. He reports continued improvement with decreased pain, erythema, facial edema. He reports that [place] is providing adequate pain control without the associated nausea and fatigue he experienced yesterday. Otherwise he denies fever, chills, chest pain, palpitations, dyspnea, orthopnea, abdominal pain, nausea vomiting and diarrhea. He reports good appetite. No other questions or concerns. No concerns per nursing. Reason For Visit: PAROTITIS,FACIAL CELLULITIS Physical Exam Vital Signs: Temp Pulse Resp BP Pulse Ox 98.1 F 69 16 134/87 H 97 09/12/18 12:03 09/12/18 12:03 09/12/18 12:03 09/12/18 12:03 09/12/18 12:03 Intake & Output 09/11/18 09/12/18 09/13/18 06:59 06:59 06:59 Intake Total 2400 3630 1100 Balance 2400 3630 1100 Weight 100.3 kg 98.3 kg General appearance: PRESENT: no acute distress, cooperative, obese, well- developed, well-nourished Head exam: PRESENT: atraumatic, normocephalic Eye exam: PRESENT: conjunctiva pink, EOMI, PERRLA. ABSENT: scleral icterus Ear exam: PRESENT: normal external ear exam Mouth exam: PRESENT: moist, tongue midline, other - Right side facial edema and tenderness to palpation, especially mandibular, improved from yesterday. Neck exam: ABSENT: carotid bruit, JVD, lymphadenopathy, thyromegaly Respiratory exam: PRESENT: clear to auscultation yani, symmetrical, unlabored. ABSENT: rales, rhonchi, wheezes Cardiovascular exam: PRESENT: RRR, +S1, +S2. ABSENT: diastolic murmur, rubs, systolic murmur Pulses: PRESENT: normal dorsalis pedis pul Vascular exam: PRESENT: normal capillary refill GI/Abdominal exam: PRESENT: normal bowel sounds, soft. ABSENT: distended, guarding, mass, organolmegaly, rebound, tenderness Rectal exam: PRESENT: deferred Extremities exam: PRESENT: full ROM. ABSENT: calf tenderness, clubbing, pedal edema Neurological exam: PRESENT: alert, awake, oriented to person, oriented to place, oriented to time, oriented to situation, CN II-XII grossly intact. ABSENT: motor sensory deficit Psychiatric exam: PRESENT: appropriate affect, normal mood. ABSENT: homicidal ideation, suicidal ideation Skin exam: PRESENT: dry, intact, warm. ABSENT: cyanosis, rash Results Laboratory Results: 09/12/18 06:02 09/11/18 06:00 09/12/18 06:02 WBC 7.4 RBC 4.09 L Hgb 11.7 L Hct 34.8 L MCV 85 MCH 28.5 MCHC 33.5 RDW 14.8 H Plt Count 265 Seg Neutrophils % 53.3 Lymphocytes % 25.1 Monocytes % 15.1 H Eosinophils % 6.0 Basophils % 0.5 Absolute Neutrophils 3.9 Absolute Lymphocytes 1.9 Absolute Monocytes 1.1 Absolute Eosinophils 0.4 Absolute Basophils 0.0 Impressions: Facial Bones CT 09/10/18 05:22 IMPRESSION: Numerous right parotid lesions measure up to 1.8 cm, 1.7 cm, and 1.7 cm. Moderate right submandibular lymphadenopathy. Interval worsening. Differential etiologies include infectious, inflammatory, and neoplastic processes. Chest X-Ray 09/10/18 06:49 IMPRESSION: No acute cardiopulmonary abnormality. copyright 2010 [employer]- All Rights Reserved Assessment and Plan - Diagnosis (1) Parotiditis Is this a current diagnosis for this admission?: Yes Plan: Facial CT demonstrates numerous right parotid lesions with moderate right submandibular lymphadenopathy. Patient has failed outpatient Bactrim and Keflex therapy. ED provider spoke with ophthalmology and ENT at [facility]; recommends admission for IV abx. Lab Blood cultures have no growth at 48 hr Patient is admitted to the medical floor. He is placed on IV Unasyn; will adjust as cultures result. ENT is available tomorrow; will consult Dr. Huber in the morning. Tylenol and oxycodone as needed (2) Facial cellulitis Is this a current diagnosis for this admission?: Yes Plan: Improved. Secondary to #1. Cultures and antibiotics as above. (3) Leukocytosis Is this a current diagnosis for this admission?: Yes Plan: Resolved. Secondary to #1. Cultures and antibiotics as above. (4) Fever Qualifiers: Fever type: unspecified Qualified Code(s): R50.9 - Fever, unspecified Is this a current diagnosis for this admission?: Yes Plan: Secondary to #1. TMax 100.6 last 24, 102.9 last 48 Will ask nurses to obtain stat blood cultures for next temp >101 Supportive care. Tylenol as needed. (5) Pain, eye, right Is this a current diagnosis for this admission?: Yes Plan: Improved; erythema and drainage has resolved. Per ED providers note, Dr. Moore (consulting group analyst ophthalmology at [facility]) pain is likely secondary to parotiditis. Antibiotics as above. Continue erythromycin ointment. - Time Time Spent with patient: 15-24 minutes Medications reviewed and adjusted accordingly: Yes Anticipated discharge: Home Within: within 48 hours - pending ENT clearance - Inpatient Certification Based on my medical assessment, after consideration of the patient's comorbidities, presenting symptoms, or acuity I expect that the services needed warrant INPATIENT care.: Yes I certify that my determination is in accordance with my understanding of Medicare's requirements for reasonable and necessary INPATIENT services [42 CFR 412.3e].: Yes Medical Necessity: Need for IV Antibiotics
[2018-09-13] MEDS: AMPICILLIN SODIUM/SULBACTAM NA 3 GM in NORMAL SALINE 100 ML IV SCH ×2 (05:08→11:04)
[2018-09-13] MEDS: HEPARIN SOD (PORCINE) 5,000 UNIT/ML 1 ML SYRINGE SUBCUT SCH (05:11)
[2018-09-13] MEDS: ERYTHROMYCIN 0.5% OPH OINTMENT 3.5 GM TUBE OD SCH ×2 (05:11→11:04)
[2018-09-13 06:31] LABS: ABSOLUTE BASOPHILS # (AUTO) 0.1 10^3/uL (0.0-0.2); ABSOLUTE EOSINOPHILS # (AUTO) 0.9 10^3/uL (0.0-0.6); ABSOLUTE LYMPHOCYTES (AUTO) 1.7 10^3/uL (0.5-4.7); ABSOLUTE MONOCYTES (AUTO) 0.9 10^3/uL (0.1-1.4); ABSOLUTE NEUT (AUTO) 2.4 10^3/uL (1.7-8.2); BASOPHILS % (AUTO) 0.9 % (0-2); EOSINOPHILS % (AUTO) 15.3 % (0-6); HEMATOCRIT 34.8 % (37.9-51.0); HEMOGLOBIN 11.7 g/dL (13.5-17.0); LYMPHOCYTES % (AUTO) 28.2 % (13-45); MEAN CORPUSCULAR HEMOGLOBIN 28.2 pg (27.0-33.4); MEAN CORPUSCULAR HGB CONC 33.7 g/dL (32.0-36.0); MEAN CORPUSCULAR VOLUME 84 fl (80-97); MONOCYTES % (AUTO) 14.7 % (3-13); PLATELET COUNT 291 10^3/uL (150-450); RED BLOOD COUNT 4.15 10^6/uL (4.35-5.55); RED CELL DISTRIBUTION WIDTH 14.9 % (11.5-14.0); SEGMENTED NEUTROPHILS % (AUTO) 40.9 % (42-78); TOTAL CELLS COUNTED % (AUTO) 100 %
[2018-09-13] MEDS: FAMOTIDINE 20 MG TABLET PO SCH (11:03)
[2018-09-13] MEDS: DOCUSATE SODIUM 100 MG CAPSULE PO SCH (11:04)
[2018-09-13] MEDS: NORMAL SALINE 1000 ML 1,000 ML IV PRN (11:09)
[2018-09-13 12:39] VITALS: BP 128/71
--- NOTE | 2018-09-13 19:03 | PDOC DISCHARGE SUMMARY ---
General - Admit/Disc Date/PCP Admission Date/Primary Care Provider: 09/10/18 09:21 Discharge Date: 09/13/18 - Discharge Diagnosis (1) Parotiditis Is this a current diagnosis for this admission?: Yes Summary: The CT scan shows multiple lesions in the right parotid gland. The swelling is improved with antibiotic therapy. The patient was supposed to see Dr. Huber on the day of admission. We have rescheduled his appointment for follow-up this week. He will complete a course of Augmentin as this will cover the majority of rich in the oral cavity. (2) Facial cellulitis Is this a current diagnosis for this admission?: Yes Summary: Secondary to the parotitis. Resolving with clindamycin. (3) Facial swelling Is this a current diagnosis for this admission?: Yes Summary: Still with slight swelling over the right side of the face but significantly improved with IV antibiotics (4) Leukocytosis Is this a current diagnosis for this admission?: Yes Summary: Patient exhibited an elevated white blood cell count due to the infection. His White blood cell count has normalized. (5) Fever Is this a current diagnosis for this admission?: Yes Summary: Secondary to infection. The patient is now afebrile. (6) Pain, eye, right Is this a current diagnosis for this admission?: Yes Summary: Patient actually reports getting a foreign body in the right eye. He saw the lactation coordinator. He was treated with eyedrops and ointment. The oph thalmologist felt that this was a separate incident from the parotitis. We have given the patient Ilotycin ointment 4 times a day during this admission and he will continue applying until the tube is empty. We will also complete the Augmentin therapy. The pain in his eye is improved. 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 He was being treated for foreign body in the eye by ophthalmology. He was treated with ointment and drops for the right eye. The patient was seen in the emergency room on the day before admission and has failed outpatient antibiotic therapy. He had a low-grade fever with tachycardia, tachypnea, elevated white blood cell count and a positive CT scan showing numerous right parotid lesions and right submandibular lymphadenopathy. He was referred to the hospital service for admission and IV antibiotics. Hospital Course Hospital Course: Benign hospital course. He improved daily with the antibiotic therapy. His white blood cell count is normal and I will discharge him on oral antibiotics to complete his therapy. Physical Exam Vital Signs: Temp Pulse Resp BP Pulse Ox 98.3 F 69 18 124/75 96 09/13/18 11:13 09/13/18 11:13 09/13/18 11:13 09/13/18 11:13 09/13/18 11:13 Intake & Output 09/12/18 09/13/18 09/14/18 06:59 06:59 06:59 Intake Total 3630 4640 Balance 3630 4640 Weight 98.4 kg General appearance: PRESENT: no acute distress, cooperative, well-developed Head exam: PRESENT: atraumatic, normocephalic Eye exam: PRESENT: conjunctiva pink. ABSENT: scleral icterus Ear exam: PRESENT: normal external ear exam Mouth exam: PRESENT: moist, tongue midline Teeth exam: ABSENT: edentulous, poor dentation Throat exam: PRESENT: other - No parotid ductal drainage. ABSENT: post pharyngeal erythema, tonsillar erythema, tonsillar exudate Respiratory exam: PRESENT: clear to auscultation yani, symmetrical, unlabored. ABSENT: accessory muscle use, rales, rhonchi, tachypnea, wheezes Cardiovascular exam: PRESENT: RRR, +S1, +S2 GI/Abdominal exam: PRESENT: normal bowel sounds, soft. ABSENT: distended, tenderness Rectal exam: PRESENT: deferred Gentrourinary exam: ABSENT: indwelling catheter Extremities exam: PRESENT: full ROM. ABSENT: calf tenderness, pedal edema Musculoskeletal exam: PRESENT: ambulatory, normal inspection Neurological exam: PRESENT: alert, awake, oriented to person, oriented to place, oriented to time, oriented to situation, CN II-XII grossly intact. ABSENT: motor sensory deficit Psychiatric exam: PRESENT: appropriate affect, normal mood. ABSENT: agitated, anxious Focused psych exam: ABSENT: delusional, restlessness Skin exam: PRESENT: dry, normal color, warm. ABSENT: rash Results Laboratory Results: 09/13/18 06:15 09/11/18 06:00 09/13/18 06:15 WBC 6.0 RBC 4.15 L Hgb 11.7 L Hct 34.8 L MCV 84 MCH 28.2 MCHC 33.7 RDW 14.9 H Plt Count 291 Seg Neutrophils % 40.9 L Lymphocytes % 28.2 Monocytes % 14.7 H Eosinophils % 15.3 H Basophils % 0.9 Absolute Neutrophils 2.4 Absolute Lymphocytes 1.7 Absolute Monocytes 0.9 Absolute Eosinophils 0.9 H Absolute Basophils 0.1 Impressions: Facial Bones CT 09/10/18 05:22 IMPRESSION: Numerous right parotid lesions measure up to 1.8 cm, 1.7 cm, and 1.7 cm. Moderate right submandibular lymphadenopathy. Interval worsening. Differential etiologies include infectious, inflammatory, and neoplastic processes. Chest X-Ray 09/10/18 06:49 IMPRESSION: No acute cardiopulmonary abnormality. copyright 2010 [employer]- All Rights Reserved Qualifiers - * PATIENT BEING DISCHARGED WITH ANY OF THE FOLLOWING DIAGNOSIS: No Acute Heart Failure - Is this a Heart Failure Patient?: No Plan Discharge Plan: Discharged home. Follow-up with otolaryngology. Time Spent: Greater than 30 Minutes
== END 2018-09-13 13:11 | disposition home or self-care (01) | DRG 155 ==
LOC: ER 00:19 → EH 09:21 → 2N 13:55
PROVIDERS: ADMIT Internal Medicine; ATTEND Internal Medicine
DX: K11.20 Sialoadenitis, unspecified (principal); L03.211 Cellulitis of face; H57.11 Ocular pain, right eye; D72.829 Elevated white blood cell count, unspecified; R50.9 Fever, unspecified
CPT/HCPCS: 36415; 70487; 71045; 80048; 80053; 83605; 85025; 87040; 99285; J0295; J1170; J1644; J2270; J2405; J3370; J3490; J7030; J7050; J7060